=== PATIENT | male | born 1970 | race Caucasian/White ===

== ENCOUNTER → 2019-11-13 | Day surgery (SDC) | payer OTHER ==
--- NOTE | 2019-11-12 13:25 | Diagnostic Imaging Report ---
Abdomen, 1 view. History: Preop, lithotripsy. Findings: Air is scattered throughout nondilated small and large bowel. A 7 x 13 mm oval calcification is present in the left mid abdomen along the course of the left ureter at the level of L3-L4. Multiple small 2 to 3 mm calcifications are projected over both kidneys. The osseous structures are intact. IMPRESSION: Multiple small bilateral renal calculi and possible left ureteral calculus versus lymph node. Signed by: Gunnar Springer on 11/12/2019 1:22 PM
--- NOTE | 2019-11-12 14:36 | Diagnostic Imaging Report ---
EXAMINATION: CHEST 2 VIEWS INDICATION:PRE-OP. COMPARISON: None FINDINGS: PA and lateral views TUBES and LINES: None. LUNGS: Lungs are well inflated. There is no evidence of pneumonia or pulmonary edema. PLEURA: No pleural effusion or pneumothorax. HEART AND MEDIASTINUM: The cardiomediastinal silhouette is unremarkable. BONES AND SOFT TISSUES: No acute osseous lesion. Soft tissues are unremarkable. UPPER ABDOMEN: No free air under the diaphragm. IMPRESSION: No acute thoracic abnormality. Signed by: Marco Lane MD on 11/12/2019 2:32 PM
[~2019-11-13] MED LIST: ASPIR 8181 MG PO; CEFTRIAXONE SOD 1 GM/NS 50 ML 50 ML IV ONE; CRESTOR10 MG PO; DESFLURANE 240 ML BTL INH ONE; DEXAMETHASONE SOD PHOS INJ 4 MG/ML VIAL ONE; FENTANYL CITRATE/PF 100MCG/2 ML INJ ONE; LIDOCAINE HCL 2% LOCAL INJ 5 ML SDV VIAL INJ ONE; MIDAZOLAM HCL 2 MG/2 ML VIAL ONE; NIACIN500 M2 PO; ONDANSETRON HCL INJ 2MG/ML 2ML 2 MG/ML VIAL ONE; PROPOFOL IV EMULSION 10 MG/ML 20 ML VIAL ONE
--- OUTSIDE RECORDS SUMMARY | 2019-11-13 05:27 | XMS REPORT ---
Author Author [facility] Address Unknown Phone Unavailable Care Team Providers Care Bridge Teacher Name Role Phone RYLAND CASILLAS Unavailable Unavailable Problems This patient has no known problems. Allergies, Adverse Reactions, Alerts This patient has no known allergies or adverse reactions. Medications This patient has no known medications. Results Test Description Test Time Test Comments Text Results Atomic Results Result Comments CHEST 2 VIEWS 2019-11-12 14:32:00 [facility] [address] [address] Patient Name: JOYA CASTLE MR #: [id number] : 1970 Age/Sex: 49/M Req #: [id number] [facility] Physician: Ordered by: RYLAND CASILLAS MD Report #: [id number] Location: OR Room/Bed: Procedure: [id number] DX/CHEST 2 VIEWS Exam Date: 11/12/19 Exam Time: 1205 REPORT STATUS: Signed EXAMINATION: CHEST 2 VIEWS INDICATION:PRE-OP. COMPARISON: None FINDINGS: PA and lateral views TUBES and LINES: None. LUNGS: Lungs are well inflated. There is no evidence of pneumonia or pulmonary edema. PLEURA: No pleural effusion or pneumothorax. HEART AND MEDIASTINUM: The cardiomediastinal silhouette is unremarkable. BONES AND SOFT TISSUES: No acute osseous lesion. Soft tissues are unremarkable. UPPER ABDOMEN: No free air under the diaphragm. IMPRESSION: No acute thoracic abnormality. Signed by: Marco Thomas MD on 11/12/2019 2:32 PM Dictated By: MARCO THOMAS MD 31 Transcribed By: BO on 11/12/191431 COPY TO: RYLAND CASILLAS MD ABDOMEN-1VIEW (KUB) 2019-11-12 13:19:[address] [address] Patient Name: JOYA CASTLE MR #: [id number] : 1970 Age/Sex: 49/M Req #: [id number] Adm Physician: Ordered by: RYLAND CASILLAS MD Report #: [id number] Location: OR Room/Bed: Procedure: [id number] DX/ABDOMEN-1VIEW (KUB) Exam Date: 11/12/19 Exam Time: 1205 REPORT STATUS: Signed Abdomen, 1 view. History: Preop, lithotrips y. Findings: Air is scattered throughout nondilated small and large bowel. A 7 x 13 mm oval calcification is present in the left mid abdomen along the course of the left ureter at the level of L3-L4. Multiple small 2 to 3 mm calcifications are projected over both kidneys. The osseous structures are intact. IMPRESSION: Multiple small bilateral renal calculi and possible left ureteral calculus versus lymph node. Signed by: Gunnar Springer on 11/12/2019 1:22 PM Dictated By: GUNNAR SPRINGER MD 132 Transcribed By: BO on 11/12/191321 COPY TO: RYLAND CASILLAS MD
[2019-11-13 08:20] VITALS: BP 122/83
--- NOTE | 2019-11-14 12:34 | Operative Report ---
DATE OF PROCEDURE: 11/13/2019 SURGEON: Dallas Liang MD PREOPERATIVE DIAGNOSES: Left renal calculus and left hydronephrosis. POSTOPERATIVE DIAGNOSES: Left renal calculus and left hydronephrosis. PROCEDURES: 1. Staged shock wave lithotripsy, left side. 2. Supervision of fluoroscopy. ANESTHESIA: General. ESTIMATED BLOOD LOSS: Minimal. COMPLICATIONS: None. INDICATIONS: Mr. Gonzalez Hargrove is a 49-year-old male with a history of a very large obstructing left ureteral calculus. The patient and I had a long discussion about alternatives, risks, and benefits, specifically that this is immediately and medically necessary to correct serious medical condition of a blocked kidney to preserve a life for renal function without immediate performance of the surgery. The patient would be at risk for serious adverse medical consequences or . The patient agrees and elected to urgently proceed. He voiced understanding of the options, alternatives, the risks, and benefits including doing nothing, shock wave lithotripsy, ureteroscopy, percutaneous surgery or open surgery. He declined stent at this time and elected to proceed. PROCEDURE IN DETAIL: After informed consent was obtained, the patient was taken to the operative suite, placed supine on the operative table, underwent general anesthesia by the Anesthesia Service. Stone was localized in the X, Y, and Z planes. Treatment was performed per the treatment report. The patient tolerated the procedure well and was transferred to the recovery room in excellent condition. Supervision of fluoroscopy: I was present for the entire procedure and supervised fluoroscopy. There was no radiologist present, dosage per treatment report. Dallas Liang MD ES/MODL /[id number]
== END | disposition home or self-care (01) ==
LOC: OR 05:24
PROVIDERS: ATTEND Urology
DX: N13.2 Hydronephrosis with renal and ureteral calculous obstruction (principal); R35.1 Nocturia; I10 Essential (primary) hypertension; E78.5 Hyperlipidemia, unspecified; E66.01 Morbid (severe) obesity due to excess calories; K21.9 Gastro-esophageal reflux disease without esophagitis; Z88.1 Allergy status to other antibiotic agents; Z01.810 Encounter for preprocedural cardiovascular examination; Z01.818 Encounter for other preprocedural examination; Z79.82 Long term (current) use of aspirin; Z68.33 Body mass index [BMI] 33.0-33.9, adult; Z84.1 Family history of disorders of kidney and ureter; Z80.42 Family history of malignant neoplasm of prostate
CPT/HCPCS: 50590; 71046; 74018; 93005; J0696; J1100; J2001; J2250; J2405; J2704; J3010

== ENCOUNTER 2019-11-17 12:42 | Inpatient (IN) | payer OTHER ==
[~2019-11-17] VITALS: Ht 157.5 cm; Wt 81.2 kg
[~2019-11-17 12:42] MED LIST changes: -CEFTRIAXONE SOD 1 GM/NS 50 ML 50 ML IV ONE; -DESFLURANE 240 ML BTL INH ONE; -DEXAMETHASONE SOD PHOS INJ 4 MG/ML VIAL ONE; -FENTANYL CITRATE/PF 100MCG/2 ML INJ ONE; -LIDOCAINE HCL 2% LOCAL INJ 5 ML SDV VIAL INJ ONE; -MIDAZOLAM HCL 2 MG/2 ML VIAL ONE; -ONDANSETRON HCL INJ 2MG/ML 2ML 2 MG/ML VIAL ONE; -PROPOFOL IV EMULSION 10 MG/ML 20 ML VIAL ONE
[2019-11-17] MEDS ORDERED: ACETAMINOPHEN 325 MG TAB PO ONE (13:15)
[2019-11-17 13:24] LABS: STREPTOCOCCUS GRP A ANTIGEN NEGATIVE (NEGATIVE)
[2019-11-17 13:27] LABS: BASOPHILS % 0.2 % (0.0-1.0); EOSINOPHILS % 0.1 % (0.0-6.0); HEMATOCRIT 41.7 % (38.2-49.6); HEMOGLOBIN 14.1 g/dL (14.0-18.0); LYMPHOCYTES # (AUTO) 1.8 (1.0-3.2); LYMPHOCYTES % 20.4 % (18.0-39.1); MEAN CORPUSCULAR HEMOGLOBIN 28.7 pg (28-32); MEAN CORPUSCULAR HGB CONC 33.8 g/dL (31-35); MEAN CORPUSCULAR VOLUME 84.9 fL (81-99); MONOCYTES # (AUTO) 0.8 (0.2-0.8); MONOCYTES % 9.1 % (4.4-11.3); NEUTROPHILS % 69.7 % (38.7-80.0); PLATELET COUNT 289 x10e3/uL (140-360); RED BLOOD COUNT 4.91 x10e6/uL (4.3-5.7); RED CELL DISTRIBUTION WIDTH 13.2 % (11.7-14.4)
[2019-11-17 13:34] LABS: INFLUENZAE A&B ANTIGEN (RAPID) NEGATIVE (NEGATIVE)
[2019-11-17 13:45] LABS: ALANINE AMINOTRANSFERASE 15 IU/L (0-55); ALBUMIN 3.8 g/dL (3.5-5.0); ALKALINE PHOSPHATASE 77 IU/L (40-150); ANION GAP 12.2 mmol/L (8-16); BLOOD UREA NITROGEN 11 mg/dL (7-26); BUN/CREATININE RATIO 9 (6-25); CARBON DIOXIDE 20 mmol/L (22-29); CHLORIDE 108 mmol/L (98-107); CREATINE KINASE 119 IU/L (30-200); CREATININE, SERUM 1.18 mg/dL (0.72-1.25); EST GLOMERULAR FILTRATION RATE > 60 ML/MIN (60-); GLUCOSE 86 mg/dL (74-118); POTASSIUM 3.2 mmol/L (3.5-5.1); SODIUM 137 mmol/L (136-145)
[2019-11-17 13:46] LABS: INR 0.95; PROTHROMBIN TIME 13.2 seconds (11.9-14.5)
[2019-11-17 13:47] LABS: PARTIAL THROMBOPLASTIN TIME 33.2 seconds (23.8-35.5)
--- NOTE | 2019-11-17 14:30 | Diagnostic Imaging Report ---
EXAMINATION: CHEST SINGLE (PORTABLE) INDICATION: Cough COMPARISON: Chest radiograph 11/12/2019 FINDINGS: LINES/TUBES:EKG leads overlie the chest. LUNGS:The lungs are well-inflated. No focal consolidation or pulmonary edema. PLEURA:No pleural effusion or pneumothorax. MEDIASTINUM:The cardiomediastinal silhouette appears normal in size and shape. BONES/SOFT TISSUES:No acute osseous injury. ABDOMEN:No free air under the diaphragm. IMPRESSION: No focal pneumonia or pulmonary edema. Signed by: Sherine Campos MD on 11/17/2019 2:26 PM
[2019-11-17] MEDS ORDERED: ONDANSETRON HCL INJ 2MG/ML 2ML 2 MG/ML VIAL IV PRN (15:45)
[2019-11-17] MEDS ORDERED: ALBUTEROL/IPRATROPIUM 3 ML NEB NEB PRN (15:45)
[2019-11-17] MEDS ORDERED: SODIUM CHLORIDE FLUSH 10 ML SYR INJ PRN (15:45)
--- NOTE | 2019-11-17 17:50 | NUR ---
CALLED [facility], THEY WILL BRING TRAY
[2019-11-17] MEDS: AZITHROMYCIN 500MG/NS 250 ML 250 ML IV SCH (17:58)
--- NOTE | 2019-11-17 18:23 | Diagnostic Imaging Report ---
EXAM: CT Chest WITHOUT contrast INDICATION: SOB COMPARISON: None TECHNIQUE: Chest was scanned utilizing a multidetector helical scanner from the lung apex through the level of the adrenal glands without administration of IV contrast. Absence of intravenous contrast decreases sensitivity for detection of lymphadenopathy and vascular pathology. Coronal and sagittal reformations were obtained. Routine protocol was performed. IV CONTRAST: None COMPLICATIONS: None RADIATION DOSE: Total DLP: 428.82 mGy*cm Estimated effective dose: (DLP x 0.014 x size factor) mSv CTDIvol has been reviewed. It is below the limits set by the Radiation Protocol Committee (RPC). FINDINGS: LINES/ TUBES: None. LUNGS AND AIRWAYS: Multiple peripheral patchy groundglass opacities are seen. There are bibasilar subsegmental atelectasis. Calcified granulomas are seen along the right major fissure (series 3, image 6) and in right lower lobe (image 73). Central airways are normal. PLEURA: The pleural spaces are clear. HEART AND MEDIASTINUM: The thyroid gland is normal. No axillary lymphadenopathy. Multiple calcified mediastinal and right hilar lymphadenopathy suggestive of prior granulomatosis exposure. 1 cm left axillary lymph node (series 2, image 19) is likely reactive. The heart is normal in size.. There is no pericardial effusion. There are moderate atherosclerotic calcifications in the coronary arteries. UPPER ABDOMEN: Unremarkable. BONES: Chronic fracture deformities of the left lateral ribs SOFT TISSUES: Unremarkable. IMPRESSION: Multiple peripheral patchy groundglass opacities are likely due to atypical infection/viral disease. Recommend correlation with history of recent travel. Signed by: Marco Lane MD on 11/17/2019 6:20 PM
[2019-11-17 18:40] VITALS: BP 113/61
--- NOTE | 2019-11-17 19:56 | Consultation ---
DATE OF CONSULTATION: REASON FOR CONSULTATION: 1. Fever, shortness of breath, bronchitis, rule out COVID-19. 2. UTI. HISTORY OF PRESENT ILLNESS: This patient who is very pleasant 49-year-old with history of renal stone. He was diagnosed with UTI. He was given Neurontin, Macrodantin, but the patient was noted to have fever and cough. A month ago he was in a cruise, he went in the [place], him and his , also a co-worker was just diagnosed with COVID-19. The patient came because of the cough was so bad, the shortness of breath was so bad and he is also having shortness of breath so the patient was admitted. PAST MEDICAL HISTORY: Renal stone. PAST SURGICAL HISTORY: Denies. ALLERGIES: NKA. SOCIAL HISTORY: There is no smoking, drug abuse, or alcohol abuse. FAMILY HISTORY: Otherwise noncontributory. REVIEW OF SYSTEMS: At present time, he said the cough is better. The shortness of breath is about the same. PHYSICAL EXAMINATION: GENERAL: Currently alert, oriented does not seem to be in acute distress. VITAL SIGNS: Stable, currently afebrile. HEENT: Not icteric. NECK: Supple. CHEST: Few crackles. HEART: S1, S2. No S3, S4, or murmur. ABDOMEN: Soft. Bowel sounds present. EXTREMITIES: No edema. IMPRESSION: Fever, shortness of breath, concerned about COVID-19. We will put him on droplet and strict isolation for now. We will give him Rocephin and azithromycin to rule out pneumonia. We will obtain chest x-ray. We will obtain viral culture for COVID-19 PCR. Supportive care. Discussed with the patient at length. Answered all his question. Discussed with medical team. Answered all their questions. MD ARMANDO Lozano/SASHA /[id number]
[2019-11-17 20:00] VITALS: BP 106/78
--- NOTE | 2019-11-17 20:37 | Consultation ---
DATE OF CONSULTATION: Pulmonary Consultation REASON FOR CONSULT: Shortness of breath. HISTORY OF PRESENT ILLNESS: Mr. Hargrove is a 49-year-old male remote ex-smoker, smoked for 20+ years, quit seven years ago, came in with worsening shortness of breath and cough. The patient has been isolated for COVID, a CT showing evidence of infiltrates as well. He is denying any complaints of nausea, vomiting. 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 REVIEW OF SYSTEMS: Negative except as in HPI. PAST MEDICAL HISTORY: Hypercholesterolemia. PAST SURGICAL HISTORY: None. FAMILY AND SOCIAL HISTORY: He is currently not a smoker, ex-smoker. PHYSICAL EXAMINATION: HEART: S1, S2 audible. CHEST: Crackles on the bases. ABDOMEN: Soft, awake, and alert. NEUROLOGIC: No focal neurologic deficit. VITAL SIGNS: Temperature 99.5, pulse of 70, blood pressure 130/61, T-max 99.8. HEENT: Head is atraumatic and normocephalic. NECK: Supple. ABDOMEN: Soft. EXTREMITIES: No pedal edema. LABORATORY DATA: Labs reviewed. CT of the chest, I reviewed the images it is showing evidence of peripheral ground-glass opacities. ASSESSMENT/PLAN: Mr. Hargrove is a 49-year-old male, continue the patient on supportive treatment, ID consult to rule out COVID, continue treatment for community-acquired pneumonia. MD COLIN Lopez/SASHA /[id number]
[2019-11-17] MEDS: SODIUM CHLORIDE 0.9% 1000ML 1,000 ML IV SCH (20:47)
[2019-11-17 20:48] VITALS: BP 113/61
[2019-11-17] MEDS: CEFTRIAXONE SOD 1 GM/NS 50 ML 50 ML IV SCH (20:48)
[2019-11-17] MEDS: GUAIFENESIN/DEXTROMETHORPHAN LIQD 5 ML UDC PO SCH (20:48)
[2019-11-17] MEDS: BENZONATATE 100 MG CAP PO SCH (20:48)
[2019-11-17] MEDS ORDERED: IPRATROPIUM/ALBUTEROL SULFATE 4 GM INH INH PRN (21:30)
[2019-11-18] VITALS (10 sets, daily range): BP systolic 104–129; BP diastolic 55–78
--- NOTE | 2019-11-18 05:06 | NUR ---
H&P cc: fever/sob HPI: 49yoM, developed SOB/fever. Pt admits to being on a cruise ship about 1 month ago to the [place] with his . Pt was concerned about infection with the coronavirus. 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 CT does show ground glass opacities of the lung. 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
[2019-11-18] MEDS ORDERED: ZOLPIDEM TARTRATE 5 MG TAB PO PRN (05:15)
[2019-11-18] MEDS ORDERED: DOCUSATE SODIUM 100 MG CAP PO PRN (05:15)
[2019-11-18] MEDS ORDERED: ONDANSETRON HCL INJ 2MG/ML 2ML 2 MG/ML VIAL IV PRN (05:15)
[2019-11-18] MEDS ORDERED: ASPIRIN 81 MG CHEW TAB PO SCH (05:15)
[2019-11-18] MEDS ORDERED: ACETAMINOPHEN 325 MG TAB PO PRN (05:15)
[2019-11-18] MEDS: GUAIFENESIN/DEXTROMETHORPHAN LIQD 5 ML UDC PO SCH ×3 (05:52→21:40)
[2019-11-18 05:54] LABS: BASOPHILS % 0.4 % (0.0-1.0); EOSINOPHILS % 0.6 % (0.0-6.0); HEMATOCRIT 36.6 % (38.2-49.6); HEMOGLOBIN 12.5 g/dL (14.0-18.0); LYMPHOCYTES # (AUTO) 1.8 (1.0-3.2); LYMPHOCYTES % 34.5 % (18.0-39.1); MEAN CORPUSCULAR HEMOGLOBIN 29.1 pg (28-32); MEAN CORPUSCULAR HGB CONC 34.2 g/dL (31-35); MEAN CORPUSCULAR VOLUME 85.3 fL (81-99); MONOCYTES # (AUTO) 0.7 (0.2-0.8); MONOCYTES % 13.4 % (4.4-11.3); NEUTROPHILS # (AUTO) 2.7 (2.1-6.9); NEUTROPHILS % 50.7 % (38.7-80.0); PLATELET COUNT 252 x10e3/uL (140-360); RED BLOOD COUNT 4.29 x10e6/uL (4.3-5.7); RED CELL DISTRIBUTION WIDTH 13.2 % (11.7-14.4)
[2019-11-18 06:10] LABS: ANION GAP 10.3 mmol/L (8-16); BLOOD UREA NITROGEN 13 mg/dL (7-26); BUN/CREATININE RATIO 13 (6-25); CALCIUM 8.5 mg/dL (8.4-10.2); CARBON DIOXIDE 21 mmol/L (22-29); CHLORIDE 110 mmol/L (98-107); CREATININE, SERUM 0.99 mg/dL (0.72-1.25); EST GLOMERULAR FILTRATION RATE > 60 ML/MIN (60-); GLUCOSE 90 mg/dL (74-118); POTASSIUM 3.3 mmol/L (3.5-5.1); SODIUM 138 mmol/L (136-145)
[2019-11-18 07:52] LABS: CREATINE KINASE 213 IU/L (30-200)
[2019-11-18] MEDS: BENZONATATE 100 MG CAP PO SCH ×3 (08:50→20:10)
--- NOTE | 2019-11-18 11:48 | NUR ---
patient resting up in bed, not in any distress, still have cough, Dr Moore and Dr Alcazar had rounds
--- NOTE | 2019-11-18 13:30 | Progress Note ---
DATE: SUBJECTIVE: Mr. Hargrove is here for pneumonia. He is complaining of diarrhea today. His cough persists. His cultures are negative. White count is 5.3 with hemoglobin of 12. His respiratory panel came back negative. COVID-19 is still pending. PHYSICAL EXAMINATION: GENERAL: He is currently alert, oriented, does not seem in acute distress. VITAL SIGNS: Stable, currently afebrile. HEENT: Not icteric. NECK: Supple. CHEST: Clear. . IMPRESSION: Atypical pneumonia, concerned about COVID-19. Continue the current choice of antibiotic . Further recommendations to follow. MD ARMANDO Lozano/SASHA /[id number]
[2019-11-18] MEDS: AZITHROMYCIN 500MG/NS 250 ML 250 ML IV SCH (15:39)
[2019-11-18] MEDS: SODIUM CHLORIDE 0.9% 1000ML 1,000 ML IV SCH (15:39)
--- NOTE | 2019-11-18 19:12 | Diagnostic Imaging Report ---
EXAMINATION: CHEST SINGLE (PORTABLE) INDICATION: SOB COMPARISON: CT chest dated 11/17/2019. Chest x-ray dated 11/17/2019. FINDINGS: AP view TUBES and LINES: None. LUNGS: Lungs are well inflated. The previously seen multiple peripheral patchy groundglass opacities on CT chest one day ago are not seen on this exam as they were not seen on chest x-ray one day ago.. PLEURA: No pleural effusion or pneumothorax. HEART AND MEDIASTINUM: The cardiomediastinal silhouette is unremarkable. BONES AND SOFT TISSUES: No acute osseous lesion. Soft tissues are unremarkable. UPPER ABDOMEN: No free air under the diaphragm. IMPRESSION: The previously seen multiple peripheral patchy groundglass opacities on CT chest one day ago are not seen on this exam as they were not seen on the chest x-ray. Signed by: Marco Lane MD on 11/18/2019 7:08 PM
--- NOTE | 2019-11-18 19:18 | NUR ---
Patient visited in room during nursing rounds. Patient alert and oriented x3. Ambulatory in room prn. No distress noted. Pt having frequent non-productive cough and is receiving scheduled PO cough medications (Tessalone Perle and Robitussin). Pt wearing mask for precautionary measures while awaiting on test results for COVID-19. Pt on scheduled IV antibiotics (Rocephin and Zithromax) and on IVF (NS at 50ml/hr). Call meza within reach. Will monitor pt closely.
[2019-11-18] MEDS: CEFTRIAXONE SOD 1 GM/NS 50 ML 50 ML IV SCH (20:10)
--- NOTE | 2019-11-18 20:10 | NUR ---
Pt still coughing non-productively and was given scheduled dose of Tessalon Perle 100mg PO. Pt appear stable and quite comfortable at this time. Still breathing on room air.
[2019-11-19 04:00] VITALS: BP 116/55
[2019-11-19] MEDS: GUAIFENESIN/DEXTROMETHORPHAN LIQD 5 ML UDC PO SCH (06:08)
--- NOTE | 2019-11-19 06:52 | NUR ---
Report given to incoming dayshift RN (Mar). Patient resting and appear comfortable at this time. COVID 19 (PCR) results still pending.
[2019-11-19 07:21] VITALS: BP 118/59
[2019-11-19 08:04] VITALS: BP 118/59
[2019-11-19] MEDS: BENZONATATE 100 MG CAP PO SCH (09:27)
--- NOTE | 2019-11-19 10:28 | NUR ---
CALL RECEIVED FROM KRISTOPHER; MICHELLE EDUCATIONAL ADMINISTRATION TEACHER. CONTACT INFO: ALEYDA DALE @ [phone].
[2019-11-19] MEDS: SODIUM CHLORIDE 0.9% 1000ML 1,000 ML IV SCH (11:45)
[2019-11-19 12:13] VITALS: BP 121/72
--- NOTE | 2019-11-19 15:28 | NUR ---
Patient discharged. IV access removed- bleeding controlled and dressing applied. Telemetry removed and returned. Discharge instructions explained to patient, he verbalized understanding. Patient verbalized understanding of self isolation guidelines to follow. [facility] is delivering his prescriptions to his home. patient ambulated off unit in mask to his personal vehicle in stable condition.
--- NOTE | 2019-11-19 20:15 | Discharge Summary ---
FINAL DISCHARGE DIAGNOSES: 1. Community-acquired pneumonia, likely atypical pneumonia. 2. Cough, congestion, subjective fever. VITAL SIGNS: Temperature 96.9, pulse 68, respiratory rate 20, blood pressure 121/72, pulse ox 98% on room air. His T-max was 100, but no fever here in the hospital. LABORATORY DATA: Labs show white count was 5.3, hemoglobin 12.5, hematocrit 36.6, platelets of 252. Coagulation, PT 13, INR 0.95, PTT 33. Chemistry, sodium 138, potassium 3.3 was replaced. Chloride 110, bicarb 21, anion gap of 10, BUN 13, creatinine 0.99, glucose 90, lactic acid 0.9, calcium is 8.5, total bilirubin is 0.6, GGT is 32, AST 18, ALT 15, alkaline phosphatase 77. CK is 119. Troponins were all negative. Total protein 7.5, albumin 3.8. Serologies, the respiratory viral panel was negative including some Coronavirus PCRs were negative, but the final Coronavirus PCR is pending. Flu was negative. Microbiology, blood cultures were negative. Urine culture negative. Throat cultures were negative. IMAGING STUDIES: Chest x-ray on 11/17/2019 shows no focal pneumonia or pulmonary edema. Chest CT on 11/17/2019 shows multiple peripheral patchy ground-glass opacities, likely due to atypical infection, viral illness. Chest x-ray, the previously seen multiple peripheral patchy ground-glass opacities on CT chest one day ago are not seen on the exam that was seen on chest x-ray. HOSPITAL COURSE: This is a 49-year-old male comes into the ED with concerns for underlying cough, congestion, and subjective fever. The patient was admitted and treated for atypical pneumonia and concerning for underlying Coronavirus. The patient was in isolation. Pulmonary and ID was consulted. It was felt to be likely atypical pneumonia. The patient was on IV antibiotics. He was discharged on oral azithromycin. His respiratory panel was found to be negative except for the Coronavirus PCR, which is pending. I discussed this case with ID and he cleared the patient for discharge as the patient is currently asymptomatic. He is alert, awake, and oriented. He is not short of breath. No cough, no congestion. He is currently asymptomatic. No fever. At this time, the Coronavirus PCR will take several days. Since he is doing well and he is asymptomatic, not on oxygen, he was cleared for discharge by ID. We discussed with the patient that he must self-quarantine for 2 weeks in which he verbalized understanding. He was advised to follow up with ID in 2 weeks' time. The final results, the hospital will get a whole of these results and will notify the patient of the results, either negative or positive. On discharge, the patient was doing well back to normal baseline with no complaints. On the day of discharge, vital signs were stable, labs reviewed and stable. The patient seen and evaluated, examined thoroughly on the day of discharge. No other complaints. The patient verbalized understanding and agrees with plan of care to follow up accordingly as an outpatient with primary care physician in 1 week and ID and Pulmonary in 2 weeks' time. The patient was advised for self quarantine for 2 weeks and was advised to come back to the hospital in the event he has any worsening symptoms like shortness of breath, cough, or any concerns of fever or any other concerns, he was advised to come to the emergency room for further evaluation. MEDICATIONS: See med reconciliation form. DISPOSITION: Home. CONDITION: Stable. DIET: Heart healthy. In the event of any worsening symptoms, the patient was advised to came back to the ED for further evaluation. Discharge summary took greater than 35 minutes. Once again, patient was cleared for discharge by all consultants. MD KIRAN Alvarenga/SASHA /[id number]
--- NOTE | 2019-11-19 20:20 | NUR ---
ER , DR. NAVARRO CALLED PATIENT AT HOME, , AND NOTIFIED OF POSITIVE COVID 19 RESULT.
--- NOTE | 2019-11-20 14:43 | Discharge Summary ---
ADDENDUM: The patient's Coronavirus PCR come back to be positive last night. He was notified yesterday by the ER physician, Dr. Gunnar Almonte. We discussed with him as well even yesterday when I discharge him that he needs to self quarantine for 2 weeks and avoid contact with his children and his including other people. He did verbalize to me that he will do that. This was also reiterated to him by the ER physician yesterday, Dr. Almonte. We did discuss with him in the event he gets any worsening symptoms, especially any hypoxia, shortness of breath, or worsening fever, he was advised to please call [phone] to come to the hospital for further evaluation and management. He verbalized understanding and agrees with plan of care. I also reiterated the results to the ID physician as well. MD KIRAN Alvarenga/SASHA /[id number]
== END 2019-11-19 15:30 | disposition home or self-care (01) | DRG 194 ==
LOC: ER 12:42 → ERHOLD 15:47 → IMCU 19:47
PROVIDERS: ADMIT Internal Medicine; ATTEND Internal Medicine
DX: J12.89 Other viral pneumonia (principal); N39.0 Urinary tract infection, site not specified; E66.9 Obesity, unspecified; Z68.32 Body mass index [BMI] 32.0-32.9, adult; Z87.891 Personal history of nicotine dependence; B34.9 Viral infection, unspecified
CPT/HCPCS: 36415; 71045; 71250; 80048; 80053; 82550; 82553; 82977; 83518; 83605; 84484; 85025; 85610; 85730; 87040; 87070; 87086; 87400; 87633; 87635; 99284; J0456; J0696; J2405; J7030

== ENCOUNTER → 2020-08-26 | Day surgery (SDC) | payer OTHER ==
[~2020-08-26] MED LIST changes: +FENTANYL CITRATE/PF 100MCG/2 ML INJ ONE; +HYOSCYAMINE 0.125 MG TAB ONE; +HYOSCYAMINE SULFATE 0.5 MG/ML INJ ONE; +LIDOCAINE HCL 2% LOCAL INJ 5 ML SDV VIAL INJ ONE; +MIDAZOLAM HCL 2 MG/2 ML VIAL ONE; +PROPOFOL IV EMULSION 10 MG/ML 20 ML VIAL ONE
[2020-08-26 10:10] VITALS: BP 141/84
== END | disposition home or self-care (01) ==
LOC: OR 07:25
PROVIDERS: ATTEND Internal Medicine Gastroenterology
DX: Z12.11 Encounter for screening for malignant neoplasm of colon (principal); D12.4 Benign neoplasm of descending colon; K62.1 Rectal polyp; K57.30 Diverticulosis of large intestine without perforation or abscess without bleeding; K64.8 Other hemorrhoids; N20.0 Calculus of kidney; E78.5 Hyperlipidemia, unspecified; R06.02 Shortness of breath; Z88.1 Allergy status to other antibiotic agents; Z01.810 Encounter for preprocedural cardiovascular examination; Z01.812 Encounter for preprocedural laboratory examination; Z20.822 Contact with and (suspected) exposure to COVID-19; Z86.16 Personal history of COVID-19; Z80.0 Family history of malignant neoplasm of digestive organs
CPT/HCPCS: 45380; 45384; 45385; 93005; J1980; J2001; J2250; J2704; J3010; U0002; 45378

== ENCOUNTER 2025-05-03 08:29 | Inpatient (IN) | payer BC, OTHER ==
[2025-05-03] VITALS (10 sets, daily range): BP systolic 122–135; BP diastolic 72–84; PULSE 58–65; RESP 18–20; TEMP 97.4–98.5; O2SAT 97–100
[~2025-05-03] VITALS: Ht 157.5 cm; Wt 81.2 kg
[~2025-05-03 08:29] MED LIST changes: -FENTANYL CITRATE/PF 100MCG/2 ML INJ ONE; -HYOSCYAMINE 0.125 MG TAB ONE; -HYOSCYAMINE SULFATE 0.5 MG/ML INJ ONE; -LIDOCAINE HCL 2% LOCAL INJ 5 ML SDV VIAL INJ ONE; -MIDAZOLAM HCL 2 MG/2 ML VIAL ONE; -PROPOFOL IV EMULSION 10 MG/ML 20 ML VIAL ONE
[2025-05-03] MEDS ORDERED: SODIUM CHLORIDE 0.9% 1000ML 1,000 ML ONE (08:52)
[2025-05-03] MEDS ORDERED: KETOROLAC TROMETHAMINE 30 MG/ML VIAL ONE (08:52)
[2025-05-03 08:55] LABS: BASOPHILS % 0.1 % (0.0-1.0); EOSINOPHILS % 0.2 % (0.0-6.0); LYMPHOCYTES % 9.9 % (18.0-39.1); MONOCYTES % 7.0 % (4.4-11.3); NEUTROPHILS % 82.3 % (38.7-80.0); RED CELL DISTRIBUTION WIDTH 13.5 % (11.7-14.4)
[2025-05-03 09:02] LABS: LEUKOCYTE ESTERASE ,URINE NEGATIVE (NEGATIVE); PROTEIN,URINE DIPSTICK 1+ (NEGATIVE)
[2025-05-03 09:03] LABS: EPITHELIAL CELLS,URINE FEW /LPF; URINE UROBILINOGEN 0.2 mg/dL (0.2 - 1); WBC,URINE (MAN) 21-50 /HPF (0-5)
[2025-05-03 09:18] LABS: EST GLOMERULAR FILTRATION RATE 55.0 ML/MIN (>=60)
[2025-05-03] MEDS: KETOROLAC TROMETHAMINE 30 MG/ML VIAL IV STA (09:18)
[2025-05-03] MEDS: SODIUM CHLORIDE 0.9% 1000ML 1,000 ML IV STA (09:18)
[2025-05-03] MEDS: Morphine 4mg INJECTION 4 MG/ML INJ IV PRN (09:51)
[2025-05-03] MEDS: SODIUM CHLORIDE 0.9% 1000ML 1,000 ML IV SCH (09:51)
[2025-05-03] MEDS: ONDANSETRON HCL INJ 2MG/ML 2ML 2 MG/ML VIAL IV STA (09:51)
[2025-05-03] MEDS: ONDANSETRON HCL INJ 2MG/ML 2ML 2 MG/ML VIAL IV PRN (09:52)
[2025-05-03 09:58] LABS: AMPHETAMINES SCREEN,URINE NEGATIVE (NEGATIVE); CANNABINOIDS SCREEN,URINE NEGATIVE (NEGATIVE); COCAINE SCREEN,URINE NEGATIVE (NEGATIVE); METHADONE SCREEN, URINE NEGATIVE (NEGATIVE); OPIATES SCREEN,URINE NEGATIVE (NEGATIVE)
[2025-05-03] MEDS: KETOROLAC TROMETHAMINE 30 MG/ML VIAL IV PRN (12:53)
[2025-05-03] MEDS ORDERED: DIPHENHYDRAMINE HCL 25 MG CAP PO PRN (14:00)
[2025-05-03] MEDS ORDERED: HYDRALAZINE HCL 20 MG/ML VIAL IV PRN (14:00)
[2025-05-03] MEDS ORDERED: BENZONATATE 100 MG CAP PO PRN (14:00)
[2025-05-03] MEDS ORDERED: DOCUSATE SODIUM 100 MG CAP PO PRN (14:00)
[2025-05-03] MEDS ORDERED: LIDOCAINE 4% PATCH TP PRN (14:00)
[2025-05-03] MEDS ORDERED: DEXTROSE 50% SYRINGE 50 ML IV PRN (14:00)
[2025-05-03] MEDS ORDERED: ALBUTEROL/IPRATROPIUM 3 ML NEB NEB PRN (14:00)
[2025-05-03] MEDS ORDERED: POTASSIUM CHLORIDE 20 MEQ TAB CR PO PRN (14:00)
[2025-05-03] MEDS ORDERED: ACETAMINOPHEN 325 MG TAB PO PRN (14:00)
[2025-05-03] MEDS ORDERED: LOSARTAN POTASS25 MG PO (14:39)
[2025-05-03] MEDS: ENOXAPARIN SOD INJ 40 MG/0.4 ML SYR SC SCH (17:09)
[2025-05-04] VITALS (11 sets, daily range): BP systolic 107–141; BP diastolic 72–87; PULSE 56–72; RESP 18–21; TEMP 97.6–98.8; O2SAT 96–100
[2025-05-04 05:24] LABS: BASOPHILS % 0.1 % (0.0-1.0); EOSINOPHILS % 1.1 % (0.0-6.0); LYMPHOCYTES % 15.3 % (18.0-39.1); MONOCYTES % 10.7 % (4.4-11.3); NEUTROPHILS % 72.5 % (38.7-80.0); RED CELL DISTRIBUTION WIDTH 13.8 % (11.7-14.4)
[2025-05-04 05:45] LABS: EST GLOMERULAR FILTRATION RATE 40.0 ML/MIN (>=60)
[2025-05-04] MEDS: PANTOPRAZOLE SOD 40 MG TABEC PO SCH (08:48)
[2025-05-04 16:15] LABS: EST GLOMERULAR FILTRATION RATE 43.0 ML/MIN (>=60)
[2025-05-04] MEDS: SODIUM BICARBONATE 650 MG TAB PO SCH (16:38)
[2025-05-05] VITALS (8 sets, daily range): BP systolic 124–159; BP diastolic 79–91; PULSE 56–74; RESP 18–22; TEMP 98.3–98.7; O2SAT 98–99
[2025-05-05 05:27] LABS: BASOPHILS % 0.2 % (0.0-1.0); EOSINOPHILS % 1.4 % (0.0-6.0); LYMPHOCYTES % 13.5 % (18.0-39.1); MONOCYTES % 10.0 % (4.4-11.3); NEUTROPHILS % 74.5 % (38.7-80.0); RED CELL DISTRIBUTION WIDTH 13.8 % (11.7-14.4)
[2025-05-05 05:59] LABS: EST GLOMERULAR FILTRATION RATE 45.0 ML/MIN (>=60)
[2025-05-05] MEDS: SIMETHICONE 80 MG CHEW PO PRN (21:38)
[2025-05-05] MEDS: MELATONIN 5 MG TABLET PO PRN (21:39)
[2025-05-05] MEDS: TRAZODONE HCL 50 MG TAB PO PRN (21:39)
[2025-05-06] VITALS (7 sets, daily range): BP systolic 118–165; BP diastolic 77–87; PULSE 56–74; RESP 16–20; TEMP 97.4–98.4; O2SAT 98–99
[2025-05-06 05:28] LABS: BASOPHILS % 0.2 % (0.0-1.0); EOSINOPHILS % 1.4 % (0.0-6.0); LYMPHOCYTES % 16.2 % (18.0-39.1); MONOCYTES % 8.7 % (4.4-11.3); NEUTROPHILS % 73.0 % (38.7-80.0); RED CELL DISTRIBUTION WIDTH 13.7 % (11.7-14.4)
[2025-05-06 06:17] LABS: EST GLOMERULAR FILTRATION RATE 45.0 ML/MIN (>=60)
[2025-05-06] MEDS ORDERED: LIDOCAINE HCL 2% LOCAL INJ 5 ML SDV VIAL INJ ONE (12:29)
[2025-05-06] MEDS ORDERED: PROPOFOL IV EMULSION 10 MG/ML 20 ML VIAL ONE (12:29)
[2025-05-06] MEDS ORDERED: FENTANYL CITRATE/PF 100MCG/2 ML INJ ONE (13:08)
[2025-05-06] MEDS ORDERED: DEXAMETHASONE SOD PHOS INJ 4 MG/ML SDV ONE (13:10)
[2025-05-06] MEDS ORDERED: SEVOFLURANE INHAL SOLN 250 ML PEN BTL ONE (13:10)
[2025-05-06] MEDS ORDERED: ONDANSETRON HCL INJ 2MG/ML 2ML 2 MG/ML VIAL ONE (13:10)
[2025-05-06] MEDS ORDERED: ACETAMINOPHEN 1000 MG/100 ML 100 ML IV ONE (13:10)
[2025-05-06] MEDS ORDERED: SODIUM BICARBO650 MG PO (14:45)
== END 2025-05-06 17:00 | disposition home or self-care (01) | DRG 872 ==
LOC: ER 08:34 → ERHOLD 11:02 → MED/SURG2 11:35
PROVIDERS: ADMIT Internal Medicine; ATTEND Internal Medicine
PROC: 0TF7XZZ Fragmentation in Left Ureter, External Approach (ICD-10-PCS; principal; 2025-05-06 13:07)
DX: A41.9 Sepsis, unspecified organism (principal); N13.6 Pyonephrosis; N17.9 Acute kidney failure, unspecified; E87.20 Acidosis, unspecified; R11.2 Nausea with vomiting, unspecified; I10 Essential (primary) hypertension; N13.9 Obstructive and reflux uropathy, unspecified; E78.00 Pure hypercholesterolemia, unspecified; I12.9 Hypertensive chronic kidney disease with stage 1 through stage 4 chronic kidney disease, or unspecified chronic kidney disease; N18.9 Chronic kidney disease, unspecified; E66.9 Obesity, unspecified; R31.0 Gross hematuria; Z87.442 Personal history of urinary calculi; Z88.1 Allergy status to other antibiotic agents; Z91.199 Patient's noncompliance with other medical treatment and regimen due to unspecified reason; Z68.32 Body mass index [BMI] 32.0-32.9, adult
CPT/HCPCS: 36415; 50590; 74018; 74176; 80048; 80053; 80307; 81001; 83690; 85025; 87040; 87086; 94799; 99284; J1100; J1650; J1885; J2003; J2270; J2405; J2470; J2543; J7030